=== PATIENT | female | born 1970 | race Caucasian/White ===

== ENCOUNTER → 2019-01-01 | Outpatient (CLI) | payer BC, OTHER | LOC: RAD 13:53 → MRI 13:53 | DX: Z12.31 Encounter for screening mammogram for malignant neoplasm of breast (principal); M51.27 Other intervertebral disc displacement, lumbosacral region; M51.26 Other intervertebral disc displacement, lumbar region; M12.88 Other specific arthropathies, not elsewhere classified, other specified site; I65.23 Occlusion and stenosis of bilateral carotid arteries; R22.32 Localized swelling, mass and lump, left upper limb; R42 Dizziness and giddiness ==

== ENCOUNTER → 2019-03-16 | Outpatient (CLI) | payer BC, OTHER | LOC: ULTRA 03-06 14:30 | DX: M79.604 Pain in right leg (principal); M79.89 Other specified soft tissue disorders ==

== ENCOUNTER → 2019-03-23 | Outpatient (CLI) | payer BC, OTHER | LOC: RAD 15:39 | DX: M17.11 Unilateral primary osteoarthritis, right knee (principal) ==

== ENCOUNTER → 2019-03-27 | Outpatient (CLI) | payer BC, OTHER | LOC: MRI 12:28 | DX: S83.241A Other tear of medial meniscus, current injury, right knee, initial encounter (principal); M71.21 Synovial cyst of popliteal space [Baker], right knee; X58.XXXA Exposure to other specified factors, initial encounter; Y93.89 Activity, other specified; Y92.89 Other specified places as the place of occurrence of the external cause; Y99.8 Other external cause status ==

== ENCOUNTER → 2020-01-21 | Outpatient (CLI) | payer BC, OTHER | LOC: BC 09:09 → RAD 09:09 → BC 11:02 | PROVIDERS: ATTEND Nurse Practitioner | DX: Z12.31 Encounter for screening mammogram for malignant neoplasm of breast (principal); R55 Syncope and collapse; R51 Headache ==